=== PATIENT | male | born 1990 | race Caucasian/White ===

== ENCOUNTER 2025-01-03 14:43 | Emergency (ER) | payer BC, SELFPAY ==
[2025-01-03 14:45] VITALS: BP 126/83
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
[2025-01-03] MEDS: ADACEL 0.5 ML IM (16:16)
[2025-01-03] MEDS: KEFLEX 500 MG PO (16:16)
== END 2025-01-03 17:01 | disposition home or self-care (01) ==
LOC: EMR 14:43
PROVIDERS: EMERGENCY PHYSICIAN Emergency Medicine
DX: S92.901A Unspecified fracture of right foot, initial encounter for closed fracture (principal); X58.XXXA Exposure to other specified factors, initial encounter; Z23 Encounter for immunization
CPT/HCPCS: 99283; 90471; 73630; 90715